=== PATIENT | male | born 1955 | race Caucasian/White ===

== ENCOUNTER → 2016-04-29 | Outpatient (CLI) | payer OTHER ==
[2016-04-29 13:23] LABS: ALBUMIN/GLOBULIN RATIO 1.54 (1.00-1.93); ALKALINE PHOSPHATASE 57 U/L (45-117); ALT/SGPT 28 U/L (12-78); ANION GAP 7 MEQ/L (8-16); AST/SGOT 13 U/L (15-37); BILIRUBIN,TOTAL 0.6 MG/DL (0.2-1.0); BLOOD UREA NITROGEN 11 MG/DL (7-18); CALCIUM LEVEL 9.3 MG/DL (8.8-10.2); CARBON DIOXIDE LEVEL 29 MEQ/L (21-32); CHLORIDE LEVEL 107 MEQ/L (98-107); CHOLESTEROL LEVEL 184 MG/DL (<200); CREATININE FOR GFR 0.96 MG/DL (0.70-1.30); GLOMERULAR FILTRATION RATE > 60.0 (>49); GLUCOSE, FASTING 99 MG/DL (80-110); POTASSIUM SERUM 4.3 MEQ/L (3.5-5.1); SODIUM LEVEL 143 MEQ/L (136-145); TOTAL PROTEIN 6.6 GM/DL (6.4-8.2); TRIGLYCERIDES LEVEL 81 MG/DL (<150)
== END ==
LOC: M WUC 10:17
PROVIDERS: ATTEND Nurse Practitioner Family
DX: Z12.5 Encounter for screening for malignant neoplasm of prostate (principal); E78.4 Other hyperlipidemia

== ENCOUNTER → 2016-09-15 | Outpatient (CLI) | payer OTHER ==
--- NOTE | 2016-09-26 08:24 | SLEEPCENT ---
DATE OF PROCEDURE: 09/15/2016 ORDERED BY: Marianna Fabian NP Nocturnal polysomnography was performed due to concern for the obstructive sleep apnea syndrome in this patient with a history of excessive somnolence and nonrestorative sleep. 8 hours and 11 minutes of data were reviewed. There were 273 minutes of sleep identified. Sleep latency was prolonged at 71 minutes. Rapid eye movement (REM) latency was prolonged at 114 minutes. Sleep architecture shoed fragmentation with a prolonged period of awake between 2 and 4 a.m. Late in the study the patient did achieve REM. Sleep efficiency was reduced, however, at 56%. EKG showed a sinus rhythm with an average heart rate of 72 beats per minute. Rate variability was seen surrounding respiratory events. Rate ranged 60-95 beats per minute. EEG showed normal waveforms for awake and sleep stages. There were 200 respiratory events identified of 10 seconds in duration or greater for an apnea hypopnea index of 43.9. The events were primarily obstructive not exclusive to sleep stage nor body posture. Arousals from respiratory events were 10.3 times were hour and oxygen desaturations were seen into the 80s. Some limb activity was noted. Limb movement arousal index is 5.3. Remaining measures of sleep physiology were normal. IMPRESSION: Severe obstructive sleep apnea syndrome (G47.33). Apnea hypopnea index 43.9. RECOMMENDATION: The patient should be encouraged to return to the sleep disorder center for pressure therapy titration at his earliest convenience. In the interim alcohol and sedative avoidance should be practiced and cautioned exercise during the operation of motor vehicles. cc: MARSHA Gutierrez
== END ==
LOC: M SLEEP 19:40
PROVIDERS: ATTEND Nurse Practitioner Adult Health
DX: G47.33 Obstructive sleep apnea (adult) (pediatric) (principal)

== ENCOUNTER → 2016-10-10 | Outpatient (CLI) | payer OTHER ==
--- NOTE | 2016-10-13 11:43 | SLEEPCENT ---
DATE OF PROCEDURE: 10/10/2016 REQUESTING PROVIDER: Marianna Fabian NP INTERPRETATION: Nocturnal polysomnography was performed for the titration of pressure therapy in this patient with obstructive sleep apnea syndrome, apnea-hypopnea index of 43.9. For testing, the patient was fit with a ResMed AirFit F20 full face medium sized mask, 4 cm of water pressure were applied to the circuit and the lights were extinguished. 7 hours and 28 minutes of data were reviewed. There were 109 minutes of sleep identified. Sleep latency was quite prolonged at 256 minutes. Rapid eye movement (REM) latency sleep onset was mildly prolonged at 112 minutes. Sleep architecture, once established, was fairly good, but overall sleep efficiency was reduced by the prolonged sleep onset at 24.8%. The patient's electrocardiogram (EKG) showed a sinus rhythm with an average heart rate of 78 beats per minute. Electroencephalogram (EEG) showed reasonably normal waveforms for awake and sleep with some mild artifact. Respiratory events were best palliated with a CPAP to a pressure of +6. Significant limb activity was seen late in the night. Limb movement arousals were unchanged from the diagnostic study of 4.9 per hour. IMPRESSION: 1. Obstructive sleep apnea syndrome (G47.33). RECOMMENDATIONS: Nightly use of pressure therapy at 6 cm of water. If the patient's symptoms persist, retesting to allow further time for titration may be needed given the limited sleep on this test.
== END ==
LOC: M SLEEP 19:49
PROVIDERS: ATTEND Nurse Practitioner Adult Health
DX: G47.33 Obstructive sleep apnea (adult) (pediatric) (principal)

== ENCOUNTER → 2018-07-13 | Outpatient (CLI) | payer MEDICARE ==
[2018-07-13 16:39] LABS: BASO # 0.1 10^3/uL (0.0-0.2); BASO % 0.6 % (0.0-1.0); EOS # 0.2 10^3/uL (0.0-0.50); EOS % 2.1 % (0.0-3.0); HEMATOCRIT 46.6 % (42.0-52.0); HEMOGLOBIN 15.2 g/dl (13.5-17.5); LYMPH # 3.5 10^3/uL (1.5-4.5); LYMPH % 38.5 % (24.0-44.0); MEAN CORPUSCULAR HEMOGLOBIN 30.3 pg (27.0-33.0); MEAN CORPUSCULAR HGB CONC 32.6 g/dl (32.0-36.5); MONO # 0.7 10^3/uL (0.0-0.8); MONO % 7.4 % (0.0-5.0); NEUTROPHILS # 4.6 10^3/uL (1.8-7.7); NEUTROPHILS % 51.2 % (36.0-66.0); PLATELET COUNT, AUTOMATED 255 10^3/uL (150-450); RED BLOOD COUNT 5.01 10^6/uL (4.30-6.10)
[2018-07-13 16:45] LABS: HEMOGLOBIN A1c 6.3 %
[2018-07-13 17:06] LABS: ALT/SGPT 30 U/L (12-78); BILIRUBIN,TOTAL 0.4 MG/DL (0.2-1.0); BLOOD UREA NITROGEN 13 MG/DL (7-18); CALCIUM LEVEL 9.2 MG/DL (8.8-10.2); CARBON DIOXIDE LEVEL 31 MEQ/L (21-32); CHLORIDE LEVEL 105 MEQ/L (98-107); CHOLESTEROL LEVEL 187 MG/DL (<200); CREATININE FOR GFR 0.98 MG/DL (0.70-1.30); GLOMERULAR FILTRATION RATE > 60.0 (>49); GLUCOSE, FASTING 103 MG/DL (70-100); HDL CHOLESTEROL 55 MG/DL (>40); LDL CHOLESTEROL 109 MG/DL (<100); NON-HDL-C 132 MG/DL; POTASSIUM SERUM 5.4 MEQ/L (3.5-5.1); SODIUM LEVEL 142 MEQ/L (136-145); TOTAL PROTEIN 6.6 GM/DL (6.4-8.2); TRIGLYCERIDES LEVEL 114 MG/DL (<150)
== END ==
LOC: M WUC 11:48
PROVIDERS: ATTEND Nurse Practitioner Family
DX: E78.49 Other hyperlipidemia (principal); K21.9 Gastro-esophageal reflux disease without esophagitis; R73.01 Impaired fasting glucose

== ENCOUNTER → 2019-04-18 | Outpatient (CLI) | payer MEDICARE ==
[2019-04-18 12:32] LABS: BASO # 0.1 10^3/uL (0.0-0.2); BASO % 0.6 % (0.0-1.0); EOS # 0.2 10^3/uL (0.0-0.5); EOS % 2.4 % (0.0-3.0); HEMATOCRIT 50.7 % (42.0-52.0); LYMPH # 4.3 10^3/uL (1.5-5.0); LYMPH % 42.4 % (24.0-44.0); MEAN CORPUSCULAR HEMOGLOBIN 29.6 pg (27.0-33.0); MEAN CORPUSCULAR HGB CONC 31.6 g/dl (32.0-36.5); MEAN CORPUSCULAR VOLUME 93.9 fl (80.0-96.0); MONO # 0.6 10^3/uL (0.0-0.8); NEUTROPHILS # 4.9 10^3/uL (1.5-8.5); NEUTROPHILS % 48.3 % (36.0-66.0); PLATELET COUNT, AUTOMATED 274 10^3/uL (150-450); WHITE BLOOD COUNT 10.1 10^3/uL (4.0-10.0)
[2019-04-18 12:48] LABS: HEMOGLOBIN A1c 6.2 %
[2019-04-18 13:02] LABS: ALBUMIN 4.2 GM/DL (3.2-5.2); ALT/SGPT 53 U/L (12-78); BILIRUBIN,TOTAL 0.4 MG/DL (0.2-1.0); BLOOD UREA NITROGEN 11 MG/DL (7-18); CALCIUM LEVEL 9.6 MG/DL (8.8-10.2); CARBON DIOXIDE LEVEL 26 MEQ/L (21-32); CHLORIDE LEVEL 107 MEQ/L (98-107); CHOLESTEROL LEVEL 184 MG/DL (<200); CHOLESTEROL RISK RATIO 3.285 (<5); CREATININE FOR GFR 1.05 MG/DL (0.70-1.30); GLOMERULAR FILTRATION RATE > 60.0 (>49); GLUCOSE, FASTING 117 MG/DL (70-100); HDL CHOLESTEROL 56 MG/DL (>40); LDL CHOLESTEROL 96 MG/DL (<100); NON-HDL-C 128 MG/DL; POTASSIUM SERUM 4.2 MEQ/L (3.5-5.1); SODIUM LEVEL 141 MEQ/L (136-145); TRIGLYCERIDES LEVEL 160 MG/DL (<150)
[2019-04-19 14:07] LABS: PSA TOTAL 2.1 ng/mL (0.0-4.0)
== END ==
LOC: M LAB 10:58
PROVIDERS: ATTEND Nurse Practitioner Family
DX: K21.9 Gastro-esophageal reflux disease without esophagitis (principal); Z12.5 Encounter for screening for malignant neoplasm of prostate; E78.49 Other hyperlipidemia; R73.01 Impaired fasting glucose
CPT/HCPCS: 36415; 80053; 80061; 83036; 85025; G0103

== ENCOUNTER 2019-05-30 10:27 | Day surgery (SDC) | payer MEDICARE ==
[~2019-05-30] VITALS: Ht 182.9 cm; Wt 98.9 kg
[~2019-05-30 10:27] MED LIST: ASPI81TA85 PO; FAMO20TA PO; LOVA40TA PO; NS 1,000 ML IV ONE; SERT-141 PO; THRIVE PO
--- NOTE | 2019-05-30 11:53 | ROOR ---
Patient Name: Ricardo Cummings Procedure Date: 05/30/2019 11:31 AM Date of : 1955 Age: 64 Room: [facility] Gender: Male Note Status: Finalized Procedure: Colonoscopy Indications: Screening for colorectal malignant neoplasm Providers: Kenneth Warner Jr, MD Referring MD: Ravinder Jensen DO Requestsussy Provider: Medicines: Propofol per Anesthesia Complications: No immediate complications. Procedure: Pre-Anesthesia Assessment: - Prior to the procedure, a History and Physical was performed, and patient medications and allergies were reviewed. The patient is competent. The risks and benefits of the procedure and the sedation options and risks were discussed with the patient. All questions were answered and informed consent was obtained. Patient identification and proposed procedure were verified by the physician and the nurse in the pre-procedure area and in the procedure room. Mental Status Examination: alert and oriented. Airway Examination: normal oropharyngeal airway and neck mobility. Respiratory Examination: clear to auscultation. CV Examination: normal. ASA Grade Assessment: II - A patient with mild systemic disease. After reviewing the risks and benefits, the patient was deemed in satisfactory condition to undergo the procedure. The anesthesia plan was to use moderate sedation / analgesia (conscious sedation). Immediately prior to administration of medications, the patient was re-assessed for adequacy to receive sedatives. The heart rate, respiratory rate, oxygen saturations, blood pressure, adequacy of pulmonary ventilation, and response to care were monitored throughout the procedure. The physical status of the patient was re-assessed after the procedure. The Colonoscope was introduced through the anus and advanced to the cecum, identified by appendiceal orifice and ileocecal valve. The colonoscopy was performed without difficulty. The patient tolerated the procedure well. The quality of the bowel preparation was adequate. Findings: The recto-sigmoid colon, sigmoid colon, descending colon, transverse colon, ascending colon, cecum, appendiceal orifice and ileocecal valve appeared normal. A medium polyp was found in the rectum. The polyp was semi-pedunculated. The polyp was removed with a hot snare. Resection and retrieval were complete. Impression: - The recto-sigmoid colon, sigmoid colon, descending colon, transverse colon, ascending colon, cecum, appendiceal orifice and ileocecal valve are normal. - One medium polyp in the rectum, removed with a hot snare. Resected and retrieved. Recommendation: - Discharge patient to home (ambulatory). - Repeat colonoscopy in 5 years for surveillance. Kenneth Warner MD Kenneth Warner Jr, MD 05/30/2019 11:53:18 AM Electronically signed by Kenneth Warner Jr, MD Number of Addenda: 0 Note Initiated On: 05/30/2019 11:31 AM Estimated Blood Loss: Estimated blood loss: none.
[2019-05-30 12:20] VITALS: BP 124/82
[2019-05-30] MEDS ORDERED: LIDOCAINE 2% INJ 100 MG/5 ML SDV (FOR ANES.) As Ordered ONE (12:23)
[2019-05-30] MEDS ORDERED: propofoL 500 MG/50 ML VIAL As Ordered ONE (12:23)
== END 2019-05-30 12:30 | disposition home or self-care (01) ==
LOC: M OPP 10:27
PROVIDERS: ATTEND Surgery
DX: Z12.11 Encounter for screening for malignant neoplasm of colon (principal); K62.1 Rectal polyp; G47.30 Sleep apnea, unspecified; Z79.82 Long term (current) use of aspirin; Z79.899 Other long term (current) drug therapy; Z87.891 Personal history of nicotine dependence

== ENCOUNTER → 2023-02-15 | Outpatient (CLI) | payer MEDICARE ==
[~2023-02-15] MED LIST changes: -ASPI81TA85 PO; +ASPI81TA86 PO; -NS 1,000 ML IV ONE
== END ==
LOC: M RAD 08:31
PROVIDERS: ATTEND Internal Medicine
DX: I71.40 Abdominal aortic aneurysm, without rupture, unspecified (principal)

== ENCOUNTER → 2023-12-20 | Outpatient (CLI) | payer MEDICARE | LOC: M RAD 10:54 | PROVIDERS: ATTEND Internal Medicine | DX: R22.42 Localized swelling, mass and lump, left lower limb (principal); N50.819 Testicular pain, unspecified ==

== ENCOUNTER 2024-07-11 07:13 | Day surgery (SDC) | payer MEDICARE ==
[~2024-07-11] VITALS: Ht 182.9 cm; Wt 96.0 kg
[~2024-07-11 07:13] MED LIST changes: +AMLO1TAB24 PO; +ATOR1TAB21 PO; +GLUC1CAP10 PO; +METF500T13 PO; +THERTAB52 PO; +VITA-243 PO; +WELLTAB38 PO
[2024-07-11 08:50] VITALS: TEMP 99.1
[2024-07-11] MEDS ORDERED: propofoL 200 MG/20 ML VIAL As Ordered ONE (08:55)
[2024-07-11 09:15] VITALS: BP 132/65; O2SAT 96
== END 2024-07-11 09:16 | disposition home or self-care (01) ==
LOC: M OPP 07:13
PROVIDERS: ATTEND Surgery
DX: D12.3 Benign neoplasm of transverse colon (principal); K57.30 Diverticulosis of large intestine without perforation or abscess without bleeding; Z86.0100 Personal history of colon polyps, unspecified; G47.30 Sleep apnea, unspecified; Z79.84 Long term (current) use of oral hypoglycemic drugs; Z79.899 Other long term (current) drug therapy